=== PATIENT | female | born 1970 | race Caucasian/White ===

== ENCOUNTER 2024-04-30 10:31 | Day surgery (SDC) | payer BC, SELFPAY ==
--- NOTE | 2024-04-29 13:10 | PCM.HP.BLA ---
History and Physical Date of Admission: 04/30/24 Expand All Collapse All Pre-Op History and Physical HPI: The patient is a 53 year old female presenting for pre-operative visit. She is scheduled for Hysteroscopy D&C and Insertion of Liletta IUD, for AUB on 04/30/24. Procedure discussed along with risks, benefits and complications. Other alternatives discussed for management. Consent form signed? Yes. PAST MEDICAL HISTORY PAST MEDICAL HISTORY Diagnosis Date ? Acid reflux ? Head's esophagus ? Intramural and subserous leiomyoma of uterus 03/09/2024 ? Vitamin B 12 deficiency PAST SURGICAL HISTORY PAST SURGICAL HISTORY Procedure Laterality Date ? BX BREAST NEEDLE CORE W/O IMAGING GUIDANCE SPX 03/29/2015 Right Breast ? CAUTERY CERVIX CRYOCAUTERY INITIAL/REPEAT 2003 paps nml since ? DELIVERY ONLY 1990 ? PAST SURGICAL HISTORY OF 1984 tonsilectomy ? PAST SURGICAL HISTORY OF 2002 right foot CURRENT MEDICATIONS Current Outpatient Medications Medication Sig Dispense Refill ? norethindrone (AYGESTIN) 5 mg tablet Take 1 tablet by mouth once daily. 90 tablet 3 ? pantoprazole DR (PROTONIX) 40 mg tablet Take 40 mg by mouth once daily. ? CYANOCOBALAMIN, VITAMIN B-12, (VITAMIN B-12 INJECTION) by INJECTION(UNSPECIFIED PARENTERAL ROUTES) route. Intramuscular injection every two weeks. ? miSOPROStol (CYTOTEC) 200 mcg tablet Use 2 tablets vaginally as directed. The night before the procedure and the morning of the procedure. (Patient not taking: Reported on 03/26/2024) 4 tablet 0 No current facility-administered medications for this visit. ALLERGIES: Avocado (Laurus Persea), Latex, and Tree Nuts PERSONAL HISTORY: SOCIAL HISTORY Social History Tobacco Use ? Smoking status: Never Passive exposure: Never ? Smokeless tobacco: Never Vaping Use ? Vaping status: Never Used Substance Use Topics ? Alcohol use: Yes Comment: socially ? Drug use: No FAMILY HISTORY: FAMILY HISTORY FAMILY HISTORY Problem Relation Age of Onset ? Alzheimer's Disease Mother dx'd 59yo ? other (brain bleed) Father ? No Known Problems Brother ? Heart Attack Brother ? Alzheimer's Disease Maternal Grandfather ? Colon Cancer Paternal Grandmother 60 ? Alzheimer's Disease Maternal Uncle ? Alzheimer's Disease Maternal Uncle REVIEW OF SYMPTOMS: negative except as noted above PHYSICAL EXAMINATION: VITALS: Blood pressure 124/80, pulse 80, height 174 cm (5' 8.5), weight 76.2 kg (168 lb), last menstrual period 02/09/2024, SpO2 98%. GENERAL: The patient is well nourished, well hydrated in no acute distress. , The patient is oriented to time, place, and person. IMPRESSION: 53yo with AUB, fibroid uterus, adenomyosis PLAN: hysteroscopy, D&C with symphion possible myomectomy and insertion liletta iud Pt has been counseled on risks/benefits and alternatives of surgery including but not limited to anesthesia, bleeding, infection, uterine perforation with subsequent injury to pelvic structures including bowel, bladder, ureters and vessels. Pt wishes to proceed with surgery at this time. I have reviewed and updated past medical and surgical history, medications and allergies Xena Steve MD P
[2024-04-30] VITALS (9 sets, daily range): BP systolic 122–136; BP diastolic 77–88; PULSE 60–75; RESP 16–18; TEMP 36.3–36.8; O2SAT 97–100; BMI 25.8
[2024-04-30 11:11] LABS: Internal QC Validated? YES +Cl - CLEAR BKGD; Pregnancy, Urine Negative Negative
[2024-04-30 11:44] LABS: Hematocrit 39.6 % (37-47); Hemoglobin 13.3 g/dL (12.0-15.0); Mean Corp Hgb Conc 33.6 g/dL (32-36); Mean Corpuscular Hgb 32.2 pg (27.0-32.0); Mean Corpuscular Volume 95.9 fL (81-99); Mean Platelet Vol. 8.5 fl (6.2-12.0); Platelet Count 256 K/mm3 (150-450); RBC Distribution Width CV 12.3 % (11.6-14.6); RBC Distribution Width SD 43.8 fl (35.1-43.9); Red Blood Count 4.13 M/mm3 (4.2-5.4); White Blood Count 3.5 K/mm3 (4.4-11.0)
[2024-04-30 11:53] LABS: Anion Gap 4 (5-15); BUN 15 mg/dL (7-18); BUN/Creat Ratio 16.8 RATIO (10-20); Calcium,Total 8.8 mg/dL (8.5-10.1); Chloride 112 mmol/L (98-107); Creatinine, Serum 0.89 mg/dL (0.55-1.02); EST Glomerular Filtration Rate 70 mL/min (>60); Est Glom Filt Rate - Afr Amer 84 mL/min (>60); Estimated Creatinine Clearance 77.96 ml/min; Glucose 90 mg/dL (74-106); Potassium 4.4 mmol/L (3.5-5.1); Sodium Level 141 mmol/L (136-145)
--- NOTE | 2024-04-30 12:00 | EMB_PTH ---
PATIENT: ADARSH CORNELIUS LOC: [facility] [place] U#:[id number] AGE/SX: 53/F ROOM: RE04/30/[address]: Dr. Xena Martínez, MDDOB: 1970 BED: DIS: 04/30/2024 SPEC #: [id number] RECD: 04/30/24 16:48 STATUS: MARISA MATHEW #: [id number] LIVIER: 04/30/24 12:[address]: Xena Martínez DEPT: SURGICAL PATHOLOGY RECD BY: John Person ENTERED: 05/03/24 07:49 SP TYPE: ENDOM BX/C HODAN DR: Dr. 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 Fragments of myometrium with changes suspicious for adenomyosis. Rare fragments of benign superficial endocervix. AM 05/04/2024 MICROSCOPIC DESCRIPTION Slides are reviewed. GROSS DESCRIPTION Received in fixative is one container labeled with the patient's name and designated Endometrial polyp, endometrial curettings submucosal fibroid. The specimen consists of multiple fragments of myles soft tissue mixed with blood clot measuring in aggregate 3.0 x 2.5 x 0.3cm. The entire specimen is submitted in one cassette. 05/03/2024 TC:5 CPT:53263
--- NOTE | 2024-04-30 12:24 | PCM.PRE.AN2 ---
ASA Classification* ASA Classification ASA Classification: 2 Assessment & Plan Anesthesia* Anesthesia Assessment Anesthesia Assessment: Discussed sedation and/or anesthesia options, risks, benefits, and alternatives with patient/parents/legal guardian/POA. Questions invited. The patient/parents/legal guardian/POA seems to understand and agrees to proceed with anesthesia plan. Reviewed the physical assessment, medical history, allergy history and patient home medications list prior to surgery/procedure/anesthetic and documented any changes. Performed airway and anesthesia risk assessments. Anesthesia Type Anesthesia Type: MAC History Source History Obtained from:: Patient and Chart Anesthesia Focused Assessment* Temperature: 98.2 F Pulse Rate: 63 Blood Pressure: 136/88 Respiratory Rate: 16 Pulse Ox: 100 Oxygen Delivery Method: Room Air Airway Assessment Mouth opens: >3 cm Mallampati Score: III Teeth Condition: Intact Neck Range of motion (ROM): Limited ROM (Slight decrease in extension) Focused Labs Anesthesia Preop lab: CBC WBC 3.5 K/mm3 (4.4-11.0) L 04/30/24 11:24 RBC 4.13 M/mm3 (4.2-5.4) L 04/30/24 11:24 Hgb 13.3 g/dL (12.0-15.0) 04/30/24 11:24 Hct 39.6 % (37-47) 04/30/24 11:24 Plt Count 256 K/mm3 (150-450) 04/30/24 11:24 CHEMISTRY Potassium 4.4 mmol/L (3.5-5.1) 04/30/24 11:24 Sodium 141 mmol/L (136-145) 04/30/24 11:24 BUN 15 mg/dL (7-18) 04/30/24 11:24 Creatinine 0.89 mg/dL (0.55-1.02) 04/30/24 11:24 Glucose 90 mg/dL (74-106) 04/30/24 11:24 COAG Urine Test Negative Negative 04/30/24 10:42 Pre-Assessment Diagnosis/Proposed Procedure Planned Operative Procedure(s): Hysteroscopy,D&C Symphion, Liletta intrauterine device insertion Anesthesia History Anesthesia History - window systems administrator: Anesthesia History - window systems administrator Hx Hospitalization No 04/21/24 11:00 Any Problems With Anesthesia No 04/21/24 11:00 Cholinesterase deficiency No: 02/26/2024 COVID 04/21/24 11:00 You/Your Family Experience No 04/21/24 11:00 fever (hyperthermia) with Relationship Recent Exposure to Contagious No 04/30/24 11:08 Disease Does patient have nerve No 04/21/24 11:00 stimulator Patient instructed to have device shut off --Does patient have Pacemaker No 04/30/24 11:08 or ICD? When Was Last Pacemaker Check QUESTION #4 FULL TEXT: You/Your Family Experience fever (hyperthermia) with Anesthesia Last Oral Intake Last Oral intake: Last Oral Intake NPO since 06:30 04/30/24 11:08 Meds taken in AM with sips of No 04/30/24 11:08 water? Meds patient instructed to take am of surgery PONV PONV - window systems administrator: PONV - window systems administrator Female Yes 04/21/24 11:00 HX of Motion Sickness Yes 04/21/24 11:00 HX of N/V After Surgery No 04/21/24 11:00 Non-Smoker Yes 04/21/24 11:00 Duration of Surgery greater Yes 04/21/24 11:00 than 60 minutes Number of Risk Factors 4 04/21/24 11:00 PONV Score Severe Risk 04/21/24 11:00 Height & Weight Height & Weight: Anesthesia: Height & Weight Height 5 ft 8 in 04/30/24 11:08 Weight: 77 kg 04/30/24 11:08 Body Mass Index (BMI) 25.8 04/30/24 11:08 Respiratory Assessment Respiratory Assessment - window systems administrator: Respiratory Tract Infection Hx - window systems administrator Hx Respiratory Tract Infection Yes 04/21/24 11:00 Any additional information?: Yes Hx Respiratory Tract Infection: No STOP Sleep Apnea STOP Sleep Apnea - window systems administrator: STOP Sleep Apnea - window systems administrator Hx Hypertension No 04/21/24 11:00 Hx Sleep Apnea No 04/21/24 11:00 CPAP BIPAP Do you snore loudly (louder No 04/21/24 11:00 than talking or can be heard Do you often feel tired/ No 04/21/24 11:00 fatigued/ sleepy during daytime? Has anyone observed you stop No 04/21/24 11:00 breathing during sleep? STOP Results Negative 04/21/24 11:00 QUESTION #5 FULL TEXT : Do you snore loudly (louder than talking or can be heard through closed doors)? Tobacco Use History Tobacco Use History - window systems administrator: Tobacco Use History - window systems administrator Tobacco Use Smoking Status Never smoker 04/21/24 11:00 Hx Tobacco Use No 04/21/24 11:00 Years Smoking Packs Smoked per Day Smoking Cessation Date was within the last 15 years Hx Smoking Cessation Date Hx Smoking Cessation Counseling Hematologic Medial History Hematologic Hx - window systems administrator: Hematologic Medical Hx - rn acute Hx of Blood Transfusion No 04/21/24 11:00 Hx of Transfusion in last 3 No 04/21/24 11:00 Months Date of Last Transfusion (if within last 3 months) Ever experience any problems No 04/21/24 11:00 with transfusion(s)? Specify any problems Hx of Preganancy in last 3 N/A 04/21/24 11:00 Months Nurse Filling Out Transfusion NBUCHER 04/21/24 11:00 & Questions: Date: 04/21/24 04/21/24 11:00 Time: 11:01 04/21/24 11:00 Patient unable to answer at this time (ie. confused, unrespo /Reproduction History /Reproductive History - window systems administrator: /Reproductive Hx- window systems administrator Hx Now No 04/21/24 11:00 Gestational Age (in weeks): EDC: Hx Hx Para Hx Section SAB No 04/21/24 11:00 Active Medications Active Medications: Current Medications Generic Name Dose Route Start Last Admin Trade Name Freq PRN Reason Stop Dose Admin Levonorgestrel 1 each 04/30/24 12:45 Levonorgestrel Iud (Liletta) INTRA-UTER 04/30/24 12:46 X1 ONE [facility] Medical History Wears contact lenses Wears glasses High cholesterol Migraine headache GERD (gastroesophageal reflux disease) Non-smoker Home Medications ?Medication ?Instructions ?Recorded ?Last Taken ?Type cyanocobalamin (vitamin B-12) 1,000 mcg IM .Q3W 04/21/24 Unknown History 1,000 mcg/mL injection solution norethindrone acetate 5 mg tablet 5 mg PO DAILY 04/21/24 Unknown History pantoprazole 40 mg tablet,delayed 40 mg PO DAILY 04/21/24 Unknown History release Allergy/AdvReac Type Severity Reaction Status Date / Time avocado (avacado) Allergy Severe Anaphylaxis Verified 04/30/24 11:04 Surgical History History of bunionectomy of right great toe History of wisdom tooth extraction History of tonsillectomy History of History of colonoscopy History of esophagogastroduodenoscopy (EGD) (~2023) Social History Smoking Status: Never smoker Review of Systems (Anesthesia) ROS Narrative System reviewed and no additional complaints, except as documented.
--- NOTE | 2024-04-30 13:54 | DCINST_ITS ---
Discharge Instructions Diet Discharge Diet: No restrictions Activity May resume sexual activity in: 1 week Dressing / Incision Call your doctor if you observe: Fever of 101 or Higher, Inability to urinate, Using more than 1 pad per hour and Uncontrolled pain Follow Up Care Please Follow Up With: Xena Martínez MD When: IUD check in 4-6 in office [phone] Test Results: Test results from this visit will be discussed in further detail at your follow- up appointment, if applicable. Discharge Plan Admission Attending Provider: Xena Martínez Primary Care Provider: Yordy Busch Instructions Print Language: Filipino Discharge Orders/Prescriptions Prescriptions: No Action pantoprazole 40 mg tablet,delayed release (DR/EC) 40 mg PO DAILY norethindrone acetate 5 mg tablet 5 mg PO DAILY cyanocobalamin (vitamin B-12) 1,000 mcg/mL solution 1,000 mcg IM .Q3W Disposition Disposition (needs filled in before D/C Order can be placed): Home, Self Care
--- NOTE | 2024-04-30 13:56 | OP.PCM_ITS ---
Report of Operation Date of Procedure: 04/30/24 Pre-Operative Diagnosis: AUB, fibroid uterus Post-Operative Diagnosis: same, endometrial polyp Surgery/Procedure Performed:: hysteroscopy, D&C, polypectomy, myomectomy insertion of Liletta IUD Surgeon: Xena Martínez court operations clerk: None Type of Anesthesia: General (converted to general ) and MAC Specimen's removed: Endometrial curettings, submucosal fibroid, endometrial polyp Estimated Blood Loss (mL): 5cc Fluids Replaced: None- fluid restrictions- national shortage, not indicated Description of Procedure: Informed consent was obtained the patient was taken the operating room she was placed in supine position. She was given anesthesia. She was then placed in the [facility] where she was prepped and draped in the normal sterile fashion. At this time the weighted speculum was placed in the posterior fornix of vagina. Single-tooth tenaculum was used to gently grasp the anterior lip the cervix. At this time the uterine cavity was sounded to approximately 10 cm. Gentle dilatation was performed once adequate dilatation of the cervix was achieved the hysteroscope using normal saline as a distention medium was placed. Small fundal submucosal fibroid noted. Endometrial polyp noted on right lateral aspect of uterus. Tubal ostia visualized. Symphion resting device used to obtain endometrial curettings and to perform polypectomy and myomectomy. Tissue will be sent to pathology for evaluation. Liletta iud placed at fundus without difficulty strings cut to 2.5cm from cervix. Tenaculum removed. Good hemostasis. Instrument, lap count correct x 2. Vaginal Sweep was negative. fluid deficit 550cc. Grafts/Implants Used: liletta IUD Procedure Start Time: 14:07 Procedure Stop Time: 14:19 Complications none Admit VTE Documentation VTE Present on Admission: Yes VTE Mechan Device Prophylaxis: SCD's VTE Pharm Prophylaxis ordered?: No Reason prophylaxis not ordered:: Procedure Not Indicated
[2024-04-30] MEDS: Levonorgestrel IUD (Liletta) 1 EACH INTRA-UTER (14:09)
--- NOTE | 2024-04-30 14:17 | PCM.POST.ANE ---
Anesthesia: Postop Eval I Current Vital Signs Temperature: 97.6 F Pulse Rate: 75 Blood Pressure: 126/77 Respiratory Rate: 16 Pulse Ox: 97 Oxygen Delivery Method: Room Air Assessment Airway patent: Yes Spontaneous unlabored respirations: Yes Mental status: Awake and Calm nausea: No Vomiting: No Anesthesia Complication: No Fluid Hydration Crystalloid volume administer (ml): 5 Total IV fluid infused: 5 Progress Note Anesthesia document: Postop Eval 1 completed: Yes
--- NOTE | 2024-04-30 14:39 | POSTOPAN2_ITS ---
Anesthesia Postop Eval I Sum Postop Eval Completion status Anesthesia document: Postop Eval 1 completed: Yes Anesthesia Postop Eval I Summary Anesthesia Postop Eval I Summary: Anesthesia Postop Eval I: Assessment Summary Airway patent Yes 04/30/24 14:34 SPECIAL SYSTEMS [email or web address].SCHR Spontaneous unlabored Yes 04/30/24 14:34 SPECIAL SYSTEMS TECHNICIAN.SCHR respirations Mental status Awake,Calm 04/30/24 14:34 SPECIAL SYSTEMS TECHNICIAN.SCHR nausea No 04/30/24 14:34 SPECIAL SYSTEMS TECHNICIAN.SCHR Vomiting No 04/30/24 14:34 SPECIAL SYSTEMS TECHNICIAN.SCHR Anesthesia Postop Eval I: Fluid Summary Crystalloid volume administer 5 04/30/24 14:34 SPECIAL SYSTEMS TECHNICIAN.SCHR (ml) Colloids volume administered ( ml) Blood Product volume administered (ml) Total IV fluid infused 5 04/30/24 14:34 SPECIAL SYSTEMS TECHNICIAN.SCHR Anesthesia Postop Eval I: Summary Notes Anesthesia Complication No 04/30/24 14:34 SPECIAL SYSTEMS TECHNICIAN.SCHR Anesthesia Complication Comment: Post-operative progress note Anesthesia: Postop Eval II Evaluation Mental status: Awake Pain Level: 0 nausea: No Vomiting: No
--- NOTE | 2024-04-30 14:39 | PCM.POSTANE2 ---
Anesthesia Postop Eval I Sum Postop Eval Completion status Anesthesia document: Postop Eval 1 completed: Yes Anesthesia Postop Eval I Summary Anesthesia Postop Eval I Summary: Anesthesia Postop Eval I: Assessment Summary Airway patent Yes 04/30/24 14:34 FITNESS WORKER.[email or web address] Spontaneous unlabored Yes 04/30/24 14:34 FITNESS WORKER.SCHR respirations Mental status Awake,Calm 04/30/24 14:34 FITNESS WORKER.SCHR nausea No 04/30/24 14:34 FITNESS WORKER.SCHR Vomiting No 04/30/24 14:34 FITNESS WORKER.SCHR Anesthesia Postop Eval I: Fluid Summary Crystalloid volume administer 5 04/30/24 14:34 FITNESS WORKER.SCHR (ml) Colloids volume administered ( ml) Blood Product volume administered (ml) Total IV fluid infused 5 04/30/24 14:34 FITNESS WORKER.SCHR Anesthesia Postop Eval I: Summary Notes Anesthesia Complication No 04/30/24 14:34 FITNESS WORKER.SCHR Anesthesia Complication Comment: Post-operative progress note Anesthesia: Postop Eval II Evaluation Mental status: Awake Pain Level: 0 nausea: No Vomiting: No
== END 2024-04-30 15:44 | disposition home or self-care (01) ==
LOC: SDC 10:38 → AC 10:38
PROVIDERS: Anesthesiology; PCP Family Medicine; Referring Provider Obstetrics & Gynecology; Visit Provider Obstetrics & Gynecology
PROC: 0UB98ZZ Excision of Uterus, Via Natural or Artificial Opening Endoscopic (ICD-10-PCS; CPT 58558; principal; 2024-04-30 11:45)
DX: N85.01 Benign endometrial hyperplasia (principal); D25.0 Submucous leiomyoma of uterus; N93.9 Abnormal uterine and vaginal bleeding, unspecified; K21.9 Gastro-esophageal reflux disease without esophagitis; Z30.430 Encounter for insertion of intrauterine contraceptive device
CPT/HCPCS: 58558; 58300; 00952; 80048; 81025; 85027; 88305; J7120; A4216; J2405